=== PATIENT | female | born 1965 | race Caucasian/White ===

== ENCOUNTER 2018-03-24 02:17 | Inpatient (IN) | payer OTHER ==
[~2018-03-24] VITALS: Ht 157.5 cm; Wt 70.0 kg
[~2018-03-24 02:17] MED LIST: ARMOUR THYROID60 M1 PO; COZAAR100 M1 PO; ESTRADIOL1 M1 PO; METFORMIN HCL500 M2 PO; OXYBUTYNIN CHLOR5 M2 PO; OXYCODONE HCL10 M2 PO; PANTOPRAZOLE SO40 M1 PO; SIMVASTATIN40 M1 PO; TOPROL XL50 M1 PO; XANAX1 M1 PO
--- NOTE | 2018-03-24 11:14 | Operative Report ---
Operative/Inv Procedure Report Surgery Date: 03/24/18 Name of Procedure: rectocele repair with mesh, perineorrhaphy, possible cystocele repair with mesh Pre-Operative Diagnosis: rectocele grade 3-4, cystocele grade 2-3, enterocele 2 Post-Operative Diagnosis: same Estimated Blood Loss: 50ml to 100ml Surgeon/Biofuels Operations Manager: Claire Dumont MD Anesthesia: general endotracheal tube Implants: vaginal mesh Complications: none Condition: stable Operative Indication: rectocele and enterocele and cystocele Operative/Procedure Note Note: This is a 53yo female with a long complicated urologic and pelvic floor history. She has been plagued by these issues for some time. She complains of rectal prolapse and extreme difficulty with bowel movements. She has to strain with each BM and feels her rectum prolapsing out of her rectum. She also has a vaginal bulge. She has a rectocele grade 3-4 and a cystocele as well as grade 2 and enterocele grade 2. Associated difficulty urinating at times she is convinced that it is due to the rectocele protruding into the vagina. She was given the risks benefits and alternatives of rectocele repair with mesh with introducer seal repair and possible cystocele repair when examined under anesthesia. She agrees that a cystocele repair may not be necessary as it is not her main concern or complaint. She may need a subsequent surgery depending on her outcomes with this surgery. She was given all the risks benefits and alternatives and all questions were answered for her and her . Consent was signed. Patient was taken to the operating placed on the operating table in the supine position. Timeout was performed. IV antibiotics were infused and Flagyl. She was shaved and the genitalia region. She was prepped and draped in the standard sterile fashion in the dorsal lithotomy position. A [place] retractor was placed with 6 stay hooks. Walters catheter was placed in the bladder was emptied. 1% lidocaine with epinephrine was infiltrated into the posterior vaginal wall taking care not to injure the rectum. Posterior vaginal flaps are created after an incision was made along the peritoneum and then subsequently with the Metzenbaum scissors taking care not to injure the rectum. The rectocele was dissected free from the posterior vaginal wall with care with intermittent rectal exams. Once the rectocele was completely dissected free interrupted 2-0 Vicryl sutures were placed into the fascia on opposite sides on the right and left side from the proximal to the distal portion at the perineum. A cell mesh had been placed into sterile saline at the start of the case 5 x 5 cm. This was cut in half was then sutured into place proximally and also distally and both halves were used. They were then sutured into place with the interrupted 2-0 Vicryl sutures that had been left open to placed a cell mesh in between. They were sequentially tied down from the proximal portion to the distal. In this nicely reduced the rectocele. The perineal orifice he was then addressed with the wedge resection of the perineum in an upside down triangular fashion. This was then brought together with 2-0 Vicryl sutures the fascial person followed by 3-0 Vicryl and the skin portion. Rectal exam showed a nice straight exit out the rectum with no bulge into the vagina anymore. The patient had a cystocele it was now grade 2 under anesthesia and with the rectocele repaired. The patient and I had spoken in the preoperative area about not fixing the cystocele if it was minimal or did not appear to be requiring reduction. She did not have very good sacrospinous ligaments or and given the lesser degree of prolapse it was not repaired. Sponge and needle count were correct at the end of the case. Patient tolerated procedure well. She was cleaned of the Betadine solution and she was placed back into the supine position to be position for the robotic portion of the case. Findings: no mesh in rectum and no rectal injury Discharge Disposition: patient to go on to robotic portion of the case
--- NOTE | 2018-03-24 19:16 | Operative Report ---
Operative/Inv Procedure Report Surgery Date: 03/24/18 Name of Procedure: 1. Robotic proctopexy with sigmoidectomy 2. Rigid sigmoidoscopy for the evaluation of anastomotic integrity 3. Laparoscopic and robotic lysis of adhesions lasting approximately 45 minutes Pre-Operative Diagnosis: Full-thickness rectal prolapse Post-Operative Diagnosis: Full-thickness rectal prolapse Estimated Blood Loss: scant Surgeon/Production Pattern Maker: DO Junior Stewart Simms DIRECTOR BUSINESS MANAGEMENT Anesthesia: general endotracheal tube, block Monitors: Per routine Implants: None Urine Output: Adequate Drains: None Specimens: Sigmoid colon with stapler donuts Complications: None Condition: Good Operative Indication: This is a 53-year-old female with complex pelvic floor disorder. She has symptomatic rectocele and full-thickness prolapse. Because she had severe symptoms related to both the disorders we plan a multispecialty procedure with gynecology to repair the rectocele and myself to perform the rectopexy with sigmoidectomy Operative/Procedure Note Note: On the day before procedure she developed prep at home including oral laxatives and oral antibiotics. Per our enhanced recovery protocol she drinks 12 ounces of apple juice 3 hours prior to coming to the hospital. Per our enhanced recovery protocol she was given preoperative Neurontin and Tylenol and then taken to the operating room. Dr. Claire Dumont performed the first part of the operation which was a rectocele repair she will dictate this portion. Once she was finished the patient's position was adjusted. She was placed in lithotomy position in Raheem stirrups on a pink pad with both arms tucked. She underwent bilateral tap blocks by the anesthesia department. She then had her abdomen and perineum prepped in the usual fashion. We gained access the abdominal cavity using a Veress needle technique which is inserted in the midclavicular line just subcostal on the left. Next the robotic ports are placed on the diagonal leg drawn between the xiphoid process in the right lower quadrant. The 12 and 3 port were a millimeter and the 4 port was 12 mm. A right lower quadrant 8 mm S2 port was also placed. The #3 port was placed first and this was placed blindly and the others were placed under direct visualization of the laparoscope. Patient had abundant omental adhesions to a ventral hernia mesh. This adhesions were laparoscopically taken down using jonathan and electrocautery. Next the patient was placed in steep Trendelenburg right side down. The small bowel swept out of the pelvis and the robot was docked. Patient had abnormal adhesions of her sigmoid colon in the pelvis. Began by dividing all these adhesions I couldn't were normal anatomic relationships. This was done with electrocautery and sharp dissection. Next the colon was grasped and elevated towards the anterior abdominal wall and I incised the peritoneum over the sacral promontory to the right of the rectosigmoid. Through this incision I found the avascular plane which I took all the way down to the levators posteriorly the camera to the right divided the right lateral stalk with the vessel sealer. I came around to the left identify the left ureter and then took down the lateral stalk on the on the left. During the dissection both ureters were clearly identified and protected. Next the inferior mesenteric pedicle was identified. I skeletonized the vessels distal to the takeoff the left colic and I think I also observed at least 1 sigmoidal branch. After skeletonizing the vessels they were divided with the robotic vessel sealer. The vascular pedicle appeared very hemostatic. I chose my distal transection site on the rectosigmoid. I divide the mesial rectum here using electrocautery and the vessel sealer. Once the rectal wall is completely exposed a robotic AMBROSIO blue loaded stapler was used to divide the bowel. The transected bowel was grasped pneumo peritoneum was cut down. An extraction site was created just subumbilical in the midline. This was taken down to the fascia the fascia was divided up and down in the wound protector was placed. We were able to easily extract the bowel through the wound protector. I chose my proximal site of transection. The mesentery was cleared partly with electrocautery and the larger bundles of tissue was ligated and divided with heavy Vicryl suture. A [place] was placed across the bowel the bowel sharply divided the specimen was removed from the field. A handsewn pursestring was performed with a 2-0 Prolene suture. A 28 EEA stapler was chosen for the anastomosis the anvil of the stapler was placed in the lumen of the bowel and the Hart was tied snugly around the PEG of the anvil. The bowel was reduced back into the abdominal cavity and the fascia at the midline incision were closed with running 0 PDS suture. The abdomen was reinsufflated the bowel once ago swept out of the pelvis I passed the AMBROSIO is transanally and then the AMBROSIO stapler. With stapler was in the appropriate position the spike was advanced through the wall of the rectum and then the 2 ends of the stapler were mated. The stapler was completely closed and allowed to settle for 30 seconds. The stapler was armed and then fired. The stapler was opened and completely retrieved and I had to fully intact donuts on the stapling device. Next the pelvis was filled with sterile saline and the bowel was occluded gently proximal to the anastomosis. A rigid sigmoidoscopy was performed there was no air leaking at the anastomosis. So the fluid was aspirated from the pelvis. The robot was re-docked and the rectopexy was performed. 2 2-0 silk sutures were used to pexy the right lateral stalk of the rectum to the sacral promontory fascia. 3 additional Vicryl sutures were used to reinforce the repair on either side of the silk sutures. The rectum appeared to lie in the appropriate anatomic position. At this point the ports were removed under direct visualization of lap scope. The laparoscopic ports were closed with subcuticular 4-0 Monocryl then Dermabond skin glue. The midline extraction site fascia had already been closed the subcutaneous was copiously irrigated. The adipose tissue was approximated with 2-0 Vicryl sutures in an dropped to fashion. The skin was closed with skin xochitl. The abdomen was cleansed and dried and a sterile island dressing was placed. The patient tolerated the procedure well. She was extubated in the operating room. He was taken the recovery area in good condition. At the end this operational needle sponges and instruments were accounted for.
--- NOTE | 2018-03-24 19:45 | Admission Core Measures ---
Acute Coronary Syndrome (CM) ACS Core Measures Acute Coronary Syndrome Diagnosis No Congestive Heart Failure (NEW) CHF Core Measures Congestive Heart Failure Diagnosis No Cerebrovascular Accident (NEW) CVA Core Measures CVA/TIA Diagnosis No Venous Thromboembolism VTE Core Won (View Protocol) VTE Risk Factors Surgery No Mechanical VTE Prophylaxis d/t N/A MechProphylax Ordered No VTE Pharm Prophylaxis d/t NA PharmProphylax ordered Problem List As ranked by this Provider includes Assessment & Plan 1. Rectal prolapse HOME MEDS Home Med List Alprazolam (Xanax) 1 MG TABLET 1.5 TAB PO QHS PRN SLEEP (Reported) Estradiol 1 MG TABLET 1 TAB PO DAILY HORMONE (Reported) Losartan (Cozaar) 100 MG TABLET 1 TAB PO DAILY HTN (Reported) Metformin HCl (Metformin HCl ER) 500 MG TAB.ER.24 1 TAB PO BID DM (Reported) Oxybutynin Chloride 5 MG TABLET 1 TAB PO BID URINARY INCONTINENCE (Reported) Oxycodone HCl 10 MG TABLET 1 TAB PO 4XDP PAIN (Reported) Pantoprazole Sodium 40 MG TABLET.DR 1 TAB PO DAILY REFLUX (Reported) Simvastatin (Simvastatin*) 40 MG TABLET 1 TAB PO QPM CHOLESTEROL (Reported) Thyroid,Pork (Griffin Thyroid) 60 MG TABLET 1 TAB PO DAILY HORMONE (Reported)
[2018-03-24 21:20] VITALS: BP 140/86
[2018-03-25 01:36] VITALS: BP 142/80
--- NOTE | 2018-03-25 01:45 | PN- General Surgery ---
Subjective Subjective: Patient seen and evaluated for poc. Sleeping upon arrival. Reports moderate amount of eliane-incisional abdominal pain. Has not been OOB or ambulated post op. Tolerating some liquids without n/v. Otherwise, denies cp, sob, palpitations, n/ v/d. Objective Vital Signs and I&Os Vital Signs Date Time Temp Pulse Resp B/P B/P Pulse O2 O2 Flow FiO2 Mean Ox Delivery Rate 03/25 0136 98.5 97 18 142/80 98 Nasal 2.0L Cannula 03/24 2200 96 Nasal 2.0L Cannula 03/24 2158 Nasal 2.0L Cannula 03/24 2120 98.2 84 14 140/86 96 Nasal 2.0L Cannula Intake & Output 03/25 0800 03/25 0000 03/24 1600 03/24 0803/24 0000 03/23 1600 Intake Total 555 Output Total 550 Balance 5 Intake, IV 75 Intake, Oral 480 Output, Urine 550 Patient 151 lb 155 lb Weight Weight Reported by Patient Measurement Method Physical Exam: General: middle age female, sleeping upon arrival, NAD CV: RRR Pulm: CTA Abdomen: surgical dressing is c/d/i, port sites covered by dermabond are well approximated and without signs of active drainage/hematoma, tenderness to palpation, + BS, soft, ND Extremites: 2+ DP pulses, warm and well perfused, pumps in place Current Medications: Current Medications Sig/Oliver Start time Last Medication Dose Route Stop Time Status Admin Acetaminophen 1,000 MG Q6 03/24 2359 AC 03/24 PO 03/25 1801 2313 Acetaminophen 1,000 MG ONCE ONE 03/24 1215 DC PO 03/24 1216 Alprazolam 1.5 MG AT BEDTIME 03/24 2100 AC 03/24 PO 03/31 205 222 Atorvastatin Calcium 20 MG 1700 03/25 1700 AC PO Cefazolin Sodium 2,000 MG ONCE 03/24 0000 DC IV 03/24 2359 Dextrose/Sodium 1,000 ML .Q20H 03/24 2130 AC 03/24 Chloride IV 2224 Estradiol 1 MG DAILY 03/25 0900 AC PO Fentanyl Citrate 500 MCG .STK-MED ONE 03/24 1242 DC IM 03/24 1243 Gabapentin 300 MG BID 03/24 2100 AC 03/24 PO 2230 Gabapentin 600 MG ONCE ONE 03/24 1215 DC PO 03/24 1216 Heparin Sodium 5,000 UNIT Q8 03/24 2200 AC 03/24 (Porcine) SC 2230 Insulin Aspart 0 TIDAC 03/25 0800 AC SC Losartan Potassium 100 MG DAILY 03/25 0900 AC PO Midazolam HCl 2 MG .STK-MED ONE 03/24 1243 DC IM 03/24 1244 Morphine Sulfate 4 MG Q3P PRN 03/24 2130 AC 03/25 IV 0134 Omeprazole 40 MG DAILY AC 03/25 0700 AC PO Ondansetron HCl 4 MG Q6P PRN 03/24 2130 AC IV Oxybutynin Chloride 5 MG BID 03/24 2100 AC 03/24 PO 2230 Oxycodone HCl 10 MG Q4-6 PRN PRN 03/24 2130 AC 03/24 PO 2306 Oxycodone HCl 10 MG Q12 03/24 2100 AC 03/24 PO 2222 Thyroid 1 GR DAILY 03/25 0900 AC PO Assessment/Plan Assessment/Plan POD#1 s/p DaVinci assisted repair of rectocele/cystocele with mesh, rectopexy with sigmoidectomy for symptomatic rectocele with full thickness rectal prolapse - continue current pain regimen - Walters likely out in the AM - vaginal packing out in AM - clear diet, AAT - heparin - IVFs - continue cardiac meds Core Measures Venous Thromboembolism VTE Risk Factors Surgery No Mechanical VTE Prophylaxis d/t N/A MechProphylax Ordered No VTE Pharm Prophylaxis d/t NA PharmProphylax ordered
[2018-03-25 04:10] VITALS: BP 136/74
[2018-03-25 08:00] VITALS: BP 130/70
[2018-03-25 08:37] LABS: ABSOLUTE BASOPHIL COUNT 0 /CUMM (0.0-0.2); ABSOLUTE EOSINOPHIL COUNT 0 /CUMM (0.0-0.7); ABSOLUTE GRANULOCYTE CT 7.8 /CUMM (1.4-6.5); ABSOLUTE MONOCYTE COUNT 1.1 /CUMM (0.10-0.60); BASOPHIL % 0.3 % (0.0-2.0); EOSINOPHIL % 0.1 % (0-5); GRANULOCYTE % 65.6 % (42.2-75.2); HEMATOCRIT 36.4 % (37-47); MEAN CORPUSCULAR HGB 31.4 PG (27.0-31.0); MEAN CORPUSCULAR VOLUME 95.2 FL (81.0-99.0); MEAN PLATELET VOLUME 8.6 FL (7.4-10.4); PLATELET COUNT 272 /CUMM (130-400); RBC DISTRIBUTION WIDTH 12.8 % (11.5-14.5); RED BLOOD CELL CT 3.82 /CUMM (4.20-5.40); WHITE BLOOD CELL COUNT 11.9 /CUMM (4.8-10.8)
--- NOTE | 2018-03-25 11:06 | PN- General Surgery ---
See Addendum Subjective Subjective: 53-year-old female postop day 1 robotic rectocele cystocele with mesh placement. She complains of abdominal bloating and discomfort however this controlled with her pain medication. She reports no fevers or chills and has been tolerating a clear liquid diet without nausea or vomiting Objective Vital Signs and I&Os Vital Signs Date Time Temp Pulse Resp B/P B/P Pulse O2 O2 Flow FiO2 Mean Ox Delivery Rate 03/25 0834 140/80 03/25 0800 98.7 83 14 130/70 98 03/25 0410 98.6 95 18 136/74 100 Nasal 2.0L Cannula 03/25 0136 98.5 97 18 142/80 98 Nasal 2.0L Cannula 03/25 0000 Nasal 2.0L Cannula 03/24 2200 96 Nasal 2.0L Cannula 03/24 2158 Nasal 2.0L Cannula 03/24 2120 98.2 84 14 140/86 96 Nasal 2.0L Cannula Intake & Output 03/25 1600 03/25 0800 03/25 0000 03/24 1600 03/24 0800 03/24 0000 Intake Total 660 555 Output Total 950 1900 550 Balance -950 -1240 5 Intake, IV 640 75 Intake, Oral 20 480 Output, Urine 950 1900 550 Patient 154 lb 151 lb Weight Weight Reported by Patient Measurement Method Physical Exam: Physical examination patient is alert and oriented sitting upright in her bed denies any fevers or shortness of breath Chest is clear to auscultation symmetric without rales rhonchi or wheeze Is regular rate rhythm without murmurs rubs gallops Abdomen is bloated portal sites are intact without drainage or erythema Perineal incisions are clean vaginal packing and Walters removed Lateral lower extremities are without edema and are soft Admission Lab Results I reviewed the following labs: Laboratory Tests 03/25 0630 Chemistry Sodium (137 - 145 mmol/L) 142 Potassium (3.5 - 5.1 mmol/L) 3.1 L Chloride (98 - 107 mmol/L) 107 Carbon Dioxide (22 - 30 mmol/L) 27 Anion Gap (5 - 16) 8 BUN (7 - 17 mg/dL) 4 L Creatinine (0.5 - 1.0 mg/dL) 0.4 L Estimated GFR (>60 ml/min) > 60 BUN/Creatinine Ratio (7 - 25 %) 10.0 Hematology CBC w Diff NO MAN DIFF REQ WBC (4.8 - 10.8 /CUMM) 11.9 H RBC (4.20 - 5.40 /CUMM) 3.82 L Hgb (12.0 - 16.0 G/DL) 12.0 Hct (37 - 47 %) 36.4 L MCV (81.0 - 99.0 FL) 95.2 MCH (27.0 - 31.0 PG) 31.4 H MCHC (33.0 - 37.0 G/DL) 33.0 RDW (11.5 - 14.5 %) 12.8 Plt Count (130 - 400 /CUMM) 272 MPV (7.4 - 10.4 FL) 8.6 Gran % (42.2 - 75.2 %) 65.6 Lymphocytes % (20.5 - 51.1 %) 25.0 Monocytes % (1.7 - 9.3 %) 9.0 Eosinophils % (0 - 5 %) 0.1 Basophils % (0.0 - 2.0 %) 0.3 Absolute Granulocytes (1.4 - 6.5 /CUMM) 7.8 H Absolute Lymphocytes (1.2 - 3.4 /CUMM) 3.0 Absolute Monocytes (0.10 - 0.60 /CUMM) 1.1 H Absolute Eosinophils (0.0 - 0.7 /CUMM) 0 Absolute Basophils (0.0 - 0.2 /CUMM) 0 Assessment/Plan Assessment/Plan Assessment and plan this postop day 1 advancing her diet slowly to regular Walters was taken out and we will wait for her to void. Vaginal packing was removed. She is out of bed to chair and discharge planning Core Measures Venous Thromboembolism VTE Risk Factors Surgery No Mechanical VTE Prophylaxis d/t N/A MechProphylax Ordered No VTE Pharm Prophylaxis d/t NA PharmProphylax ordered
[2018-03-25 13:14] VITALS: BP 130/80
[2018-03-25 22:24] VITALS: BP 148/80
[2018-03-26 06:18] VITALS: BP 126/64; BP 164/70
--- NOTE | 2018-03-26 09:33 | PN- General Surgery ---
See Addendum Subjective Subjective: 53-year-old female postop day #2 after robotic rectocele cystocele with mesh repair, rectopexy and sigmoidectomy she started on a regular diet yesterday she does have bowel sounds however she is not passing gas. She denies any nausea but still has abdominal distention she is requiring [id number] pain medication. Objective Vital Signs and I&Os Vital Signs Date Time Temp Pulse Resp B/P B/P Pulse O2 O2 Flow FiO2 Mean Ox Delivery Rate 03/26 0816 90 160/90 03/26 0618 98.8 100 20 164/70 93 Room Air 03/26 0600 96 Room Air 03/25 2224 98.4 92 20 148/80 96 03/25 2200 Room Air 03/25 1314 97.6 100 18 130/80 95 Room Air Intake & Output 03/26 1600 03/26 0800 03/26 0000 03/25 1600 03/25 0800 03/25 0000 Intake Total 480 360 350 660 555 Output Total 950 1900 550 Balance 480 360 -600 -1240 5 Intake, IV 640 75 Intake, Oral 480 360 350 20 480 Output, Urine 950 1900 550 Patient 154 lb 151 lb Weight Weight Reported by Patient Measurement Method Physical Exam: Patient is sitting up in bed had breakfast denies any nausea She is alert and oriented 3 pain is controlled she appears comfortable Chest is clear to auscultation symmetric without rales rhonchi or wheeze Heart is regular rate and rhythm without murmurs rubs gallops Abdomen is rounded with distention global tenderness throughout Positive bowel sounds heard Wounds are clean dry and intact Assessment/Plan Assessment/Plan Postop day #2 with slow progression in her postoperative recovery. We will DC her IV pain meds and she will be out of bed ambulating I will put her on a full liquid diet for now as she still has abdominal bloating and no passage of gas. Continue on bowel regime DC planning for this afternoon if possible Core Measures Venous Thromboembolism VTE Risk Factors Surgery No Mechanical VTE Prophylaxis d/t N/A MechProphylax Ordered No VTE Pharm Prophylaxis d/t NA PharmProphylax ordered
[2018-03-26 14:31] VITALS: BP 138/80
[2018-03-26 21:51] VITALS: BP 142/80
[2018-03-27 06:02] VITALS: BP 130/68
--- NOTE | 2018-03-27 07:53 | PN- General Surgery ---
Soraya Walker 03/27/18 0750: Subjective Subjective: PT IN BED, TOLERATING FULLS, ADVANCE TOLERATED THIS MORNING. DENEIS NAUSEA. STILL WITH 8/10 PAIN VOIDING. AMBULATING. DENIES FEVERS, SOB/CP Objective Vital Signs and I&Os Vital Signs Date Time Temp Pulse Resp B/P B/P Pulse O2 O2 Flow FiO2 Mean Ox Delivery Rate 03/27 0602 99.1 96 20 130/68 94 Room Air 03/27 0000 Room Air 03/26 2200 Room Air 03/26 2151 99.4 100 20 142/80 97 03/26 1431 99.0 100 20 138/80 96 Room Air 03/26 0816 90 160/90 Intake & Output 03/27 0800 03/27 0000 03/26 1600 03/26 0803/26 0000 03/25 1600 Intake Total 800 350 480 360 350 Output Total 950 Balance 800 350 480 360 -600 Intake, Oral 800 350 480 360 350 Number 0 Bowel Movements Output, Urine 950 Physical Exam: GEN- NAD RESP- CLEAR CARDIAC- RRR ABD- SOFT, APPROPRIATELY TENDER. INCIONS CLEAN AND DRY. Current Medications: Current Medications Sig/Oliver Start time Last Medication Dose Route Stop Time Status Admin Acetaminophen 650 MG Q4P PRN 03/26 1730 DC 03/26 PO 1802 Alprazolam 1.5 MG AT BEDTIME 03/24 2100 AC 03/26 PO 03/31 Atorvastatin Calcium 20 MG 1700 03/25 1700 AC 03/26 PO 1531 Docusate Sodium 100 MG BID 03/26 0935 AC 03/26 PO 2013 Estradiol 1 MG DAILY 03/25 0900 AC 03/26 PO 0815 Gabapentin 300 MG BID 03/24 2100 AC 03/26 PO 2013 Heparin Sodium 5,000 UNIT Q8 03/24 2200 AC 03/27 (Porcine) SC 0602 Insulin Aspart 0 TIDAC 03/25 0800 AC 03/26 SC 1233 Ketorolac 30 MG ONCE ONE 03/26 1215 DC 03/26 Tromethamine IV 03/26 1216 1210 Losartan Potassium 100 MG DAILY 03/25 0900 AC 03/26 PO 0816 Morphine Sulfate 4 MG Q3P PRN 03/24 2130 AC 03/27 IV 0127 Omeprazole 40 MG DAILY AC 03/25 0700 AC 03/27 PO 0602 Ondansetron HCl 4 MG Q6P PRN 03/24 2130 AC IV Oxybutynin Chloride 5 MG BID 03/24 2100 AC 03/26 PO 2013 Oxycodone HCl 10 MG Q4-6 PRN PRN 03/24 2130 DC 03/27 PO 0602 Oxycodone HCl 10 MG Q12 03/24 2100 AC 03/26 PO 2013 Oxycodone/ 2 TAB Q4P PRN 03/27 0745 AC Acetaminophen PO Polyethylene Glycol 17 GM DAILY 03/26 0936 AC 03/26 PO 1209 Senna/Docusate Sodium 2 TAB DAILY 03/26 0936 AC PO Thyroid 3 GR DAILY 03/25 0900 AC 03/26 PO 0816 Assessment/Plan Assessment/Plan 53YO F SP robotic rectocele cystocele with mesh repair, rectopexy and sigmoidectomy pod3. STABLE. no bm since surgery advance to reg diet this morning pain managedment with PO meds dvt ppx- ambulation and hsq fu am labs encourage IS and ambulation Dr. Loja to see this morning dc planning- likely home this afternoon pt will FU with Dr Dumont and Dr Loja as outpatient in 10-14 days Core Measures Venous Thromboembolism VTE Risk Factors Surgery No Mechanical VTE Prophylaxis d/t N/A MechProphylax Ordered No VTE Pharm Prophylaxis d/t NA PharmProphylax ordered Que Loja DO 03/27/18 0926: Attending MD Review Statement Attending Statement Attending MD Statement: examined this patient, discuss w/resident/PA/DIRECTOR OF ARCHITECTURE, agreed w/resident/PA/DIRECTOR OF ARCHITECTURE, reviewed EMR data (avail) Attending Assessment/Plan: Pt overal looks well Tolerating diet and pasign flatus Pt has chornic pain issues Discharge home today on low fiber diet Follow-up in my office early next week Ascending patient home with prescription for oxycodone 10 mg, 1 tablet every 6 hours as needed for pain Patient should continue to take 1000 mg 3 times a day next 2-3 days
--- NOTE | 2018-03-27 08:05 | Patient Discharge Instructions ---
Discharge Instructions General Discharge Information You were seen/treated for: rectocele cystocele You had these procedures: robotic repair of rectocele and cystocele with mesh rectopexy and sigmoidectomy Watch for these problems: fever over 101 nausea and vomiting increased abdominal pain increased pain with urination Call Surgeon to remove: wound check No bath, but you may shower: Yes Other wound care: keep incisions clean and dry Diet Recommended Diet: Low Residue Activity Activity Self Limited: Yes Acute Coronary Syndrome Inclusion Criteria At DC or during hospital stay patient has or had the following: ACS DIAGNOSIS No Discharge Core Measures Meds if any: Prescribed or Continued at Discharge Meds if any: NOT Prescribed or Continued at Discharge Congestive Heart Failure Inclusion Criteria At DC or during hospital stay patient has or had the following: CHF DIAGNOSIS No Discharge Core Measures Meds if any: Prescribed or Continued at Discharge Meds if any: NOT Prescribed or Continued at Discharge Cerebrovascular accident Inclusion Criteria At DC or during hospital stay patient has or had the following: CVA/TIA Diagnosis No Discharge Core Measures Meds if any: Prescribed or Continued at Discharge Meds if any: NOT Prescribed or Continued at Discharge Venous thromboembolism Inclusion Criteria VTE Diagnosis No VTE Type NONE VTE Confirmed by (Test) NONE Discharge Core Measures - Per Current guidelines, there needs to be overlap - treatment for the first 5 days of Warfarin therapy. - If discharged on Warfarin prior to 5 days of - overlap therapy, the patient will need to be - assessed for post discharge needs including - *Post discharge parental anticoagulation - *Warfarin and/or parental anticoagulation education - *Follow up date to check INR post discharge At least 5 days overlap therapy as Inpatient No Meds if any: Prescribed or Continued at Discharge Note: Overlap Therapy is Warfarin and Anticoagulant Meds if any: NOT Prescribed or Continued at Discharge
[2018-03-27 09:08] LABS: ABSOLUTE BASOPHIL COUNT 0 /CUMM (0.0-0.2); ABSOLUTE EOSINOPHIL COUNT 0.4 /CUMM (0.0-0.7); ABSOLUTE GRANULOCYTE CT 5.1 /CUMM (1.4-6.5); ABSOLUTE LYMPH COUNT 1.7 /CUMM (1.2-3.4); ABSOLUTE MONOCYTE COUNT 0.7 /CUMM (0.10-0.60); BASOPHIL % 0.4 % (0.0-2.0); EOSINOPHIL % 5.4 % (0-5); GRANULOCYTE % 64.4 % (42.2-75.2); HEMATOCRIT 34.5 % (37-47); MEAN CORPUSCULAR HGB 32.6 PG (27.0-31.0); MEAN CORPUSCULAR HGB CONC 34.7 G/DL (33.0-37.0); MEAN CORPUSCULAR VOLUME 93.8 FL (81.0-99.0); MEAN PLATELET VOLUME 8.8 FL (7.4-10.4); PLATELET COUNT 237 /CUMM (130-400); RBC DISTRIBUTION WIDTH 12.5 % (11.5-14.5); RED BLOOD CELL CT 3.68 /CUMM (4.20-5.40)
[2018-03-27] MEDS ORDERED: OXYCODONE HCL10 M2 PO ×2 (11:05→11:46)
[2018-03-27] MEDS ORDERED: TYLENOL EXTRA500 M2 PO ×2 (11:47→15:35)
[2018-03-27 13:53] VITALS: BP 160/90
[2018-03-27] MEDS ORDERED: XANAX1 M1 PO (15:18)
--- NOTE | 2018-03-27 15:22 | Surgical Discharge Summary ---
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 Home Who Do You Live With? Family Services at Home: None What is Your Primary Language? Beninese Review of Systems: See H and P Hospital Course Course Attending Physician: Freedom MATTHEW, Qeu Dumont MD,Claire Primary Care Physician: Patient Has No Primary Care Dr Hospital Course: Pt underwent by Dr Loja 1. Robotic proctopexy with sigmoidectomy 2. Rigid sigmoidoscopy for the evaluation of anastomotic integrity 3. Laparoscopic and robotic lysis of adhesions lasting approximately 45 minutes Pre-Operative Diagnosis: Full-thickness rectal prolapse Post-Operative Diagnosis: Full-thickness rectal prolapse As well as the following by Dr Dumont: rectocele repair with mesh, perineorrhaphy, possible cystocele repair with mesh Pre-Operative Diagnosis: rectocele grade 3-4, cystocele grade 2-3, enterocele 2 Post-Operative Diagnosis: same on 03/24. She tolerated the procedure and was brought to the PACU in stable condition. Over the next few days she increased her ambulation, her diet was advanced to a full liquid followed by a low residue diet. She was able to tolerate her food without nausea, was voiding and ambulating and on 03/27 was cleared for discharge. The patient is a chronic pain patient who is managed by pain medicine at home and it is recommended that she follow up with her pain medicine specialist post op for further management of her chronic pain. Her post op surgical pain is recommended to be managed with oxycodone 10mg po q6prn and tylenol 1000mg po tid for 2-3 days. This protocol was discussed at length numerous times with the patient and her . They were hoping for a much more extensive regimen of pain medication to help with her chronic pain. Complications: None immediate Allergies: Coded Allergies: No Known Allergies (03/23/18) Significant Procedures: See operative report Disposition Summary Disposition Principal Diagnosis: Rectal prolapse Additional Diagnosis: chronic pain Discharge Disposition: home or self care Discharge Instructions General Discharge Information Code Status: Full Code Patient's Diet: Low fiber diet Patient's Activity: As tolerated Follow-Up Instructions/Appts: Given to the patient and her . 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 Medications at Discharge Discharge Medications: Continue taking these medications: Metoprolol Succ XL (Toprol Xl) 50 MG TAB Milligram ORAL DAILY Oxybutynin Chloride (Oxybutynin Chloride) 5 MG TABLET 1 Tablet ORAL TWICE DAILY Thyroid,Pork (Welch Thyroid) 60 MG TABLET 3 Tablet ORAL DAILY Pantoprazole Sodium (Pantoprazole Sodium) 40 MG TABLET.DR 1 Tablet ORAL DAILY Simvastatin (Simvastatin*) 40 MG TABLET 1 Tablet ORAL Every night Estradiol (Estradiol) 1 MG TABLET 1 Tablet ORAL DAILY Losartan (Cozaar) 100 MG TABLET 1 Tablet ORAL DAILY Metformin HCl (Metformin HCl ER) 500 MG TAB.ER.24 1 Tablet ORAL TWICE DAILY Oxycodone HCl (Oxycodone HCl) 10 MG TABLET 1 Tablet ORAL EVERY SIX HOURS NEEDED as needed for pain Qty = 12 This prescription has been renewed Alprazolam (Xanax) 1 MG TABLET 1.5 Tablet ORAL TAKE AT BEDTIME as needed for SLEEP Qty = 10 This prescription has been renewed Start taking the following new medications: Acetaminophen (Tylenol Extra Strength) 500 MG TABLET 2 Tablet ORAL THREE TIMES DAILY as needed for PAIN Qty = 18 No Refills Copies To: Que Loja Jr., DO
== END 2018-03-27 16:20 | DRG 331 ==
LOC: STS 02:17 → EDSTATUS 07:00 → STS 07:00 → 2NA 11:38 → PACUH 11:38 → ENRESERV 19:48 → ENTRNSPT 20:37 → 2NA 20:48 → CMPTRNSPT 20:53 → ENPENDDIS 03-27 11:05 → 2NA 03-27 16:20
PROVIDERS: Physician Assistant; Physician Assistant Surgical
PROC: 0DBN0ZZ Excision of Sigmoid Colon, Open Approach (ICD-10-PCS; principal; 2018-03-24)
PROC: 8E0W4CZ Robotic Assisted Procedure of Trunk Region, Percutaneous Endoscopic Approach (ICD-10-PCS; principal; 2018-03-24)
PROC: 0DNN4ZZ Release Sigmoid Colon, Percutaneous Endoscopic Approach (ICD-10-PCS; principal; 2018-03-24)
PROC: 0DQP4ZZ Repair Rectum, Percutaneous Endoscopic Approach (ICD-10-PCS; principal; 2018-03-24)
PROC: 0DNU4ZZ Release Omentum, Percutaneous Endoscopic Approach (ICD-10-PCS; principal; 2018-03-24)
PROC: 0JUC0KZ Supplement of Pelvic Region Subcutaneous Tissue and Fascia with Nonautologous Tissue Substitute, Open Approach (ICD-10-PCS; 2018-03-24)
PROC: 3E0T3BZ Introduction of Anesthetic Agent into Peripheral Nerves and Plexi, Percutaneous Approach (ICD-10-PCS; 2018-03-24)
DX: K62.3 Rectal prolapse (principal); E03.9 Hypothyroidism, unspecified; E11.9 Type 2 diabetes mellitus without complications; N81.10 Cystocele, unspecified; N81.5 Vaginal enterocele; K66.0 Peritoneal adhesions (postprocedural) (postinfection); K21.9 Gastro-esophageal reflux disease without esophagitis; I10 Essential (primary) hypertension; G89.29 Other chronic pain; F41.9 Anxiety disorder, unspecified; F32.9 Major depressive disorder, single episode, unspecified; Z98.1 Arthrodesis status; E78.5 Hyperlipidemia, unspecified; M54.9 Dorsalgia, unspecified; F17.200 Nicotine dependence, unspecified, uncomplicated; Z90.49 Acquired absence of other specified parts of digestive tract; Z79.84 Long term (current) use of oral hypoglycemic drugs
CPT/HCPCS: 2NASP; 36415; 36592; 82436; 88304; 88307; 93005; 93010; C1781; C9290; J0131; J0690; J1644; J1885; J3490; J7042